=== PATIENT | female | born 1935 | race Caucasian/White ===

== ENCOUNTER 2018-09-29 09:01 | Day surgery (SDC) | payer OTHER ==
[2018-09-29] MEDS: TETRACAINE 0.5% UNIT-DOSE OP PRN ×2 (11:45→12:23)
[2018-09-29] MEDS: BETADINE OPTH PREP OP PRN ×2 (11:45→12:23)
[2018-09-29] MEDS: CYCLOGYL 2% OPTH OP PRN ×3 (11:46→11:56)
[2018-09-29] MEDS ORDERED: LIDOCAINE 1% 20 ML MDV ID STA (11:54)
[2018-09-29] MEDS ORDERED: BRIMONIDINE TARTRATE 0.2% OPTH SOL OP PRN (11:54)
[2018-09-29] MEDS ORDERED: LIDOCAINE 1%/PHENYLEPHRINE 1.5% BSS (SURGERY) INTRAOCULA ONE (11:54)
[2018-09-29] MEDS ORDERED: DEX-MOXI-KETOR OPTH INJ 1/0.5/0.4 MG/ML IO ONE (11:54)
[2018-09-29] MEDS ORDERED: ZOFRAN 4 MG/2 ML IVP ONE (11:54)
[2018-09-29] MEDS ORDERED: BSS WITH EPINEPHRINE OP ONE (11:54)
[2018-09-29] MEDS ORDERED: TORADOL ONE (12:24)
[2018-09-29] MEDS ORDERED: DECADRON 4 MG/ML SDV ONE (12:24)
[2018-09-29] MEDS ORDERED: ZOFRAN 4 MG/2 ML ONE (12:24)
[2018-09-29] MEDS ORDERED: DIPRIVAN 20 ML VIAL IVP ONE (12:24)
[2018-09-29] MEDS ORDERED: SUBLIMAZE ONE (12:24)
[2018-09-29] MEDS ORDERED: MIOSTAT INTRAOCULA ONE (12:25)
[2018-10-01 11:30] VITALS: BP 133/56
== END 2018-09-29 14:00 | disposition home or self-care (01) ==
LOC: SURG 09:01
PROVIDERS: ATTEND Ophthalmology
DX: H25.11 Age-related nuclear cataract, right eye (principal)